=== PATIENT | male | born 1950 | race Caucasian/White ===

== ENCOUNTER 2019-03-30 21:41 | Emergency (ER) | payer MEDICARE ==
[~2019-03-30] VITALS: Ht 180.3 cm; Wt 68.0 kg
[2019-03-30 22:15] LABS: ABSOLUTE LYMPHOCYTES 0.9 thou/uL (0.8-5.3); ABSOLUTE MONOCYTES 0.4 thou/uL (0.0-1.2); ABSOLUTE NEUTROPHILS 3.2 thou/uL (1.6-8.1); BASOPHILS 0.7 %; EOSINOPHILS 0.9 %; HEMATOCRIT 37.4 % (42.0-52.0); HEMOGLOBIN 12.4 gm/dL (14.0-18.0); LYMPHOCYTES 20.4 %; MCH 33.9 pg (26.0-34.0); MCHC 33.2 g/dL (28.0-37.0); MCV 102.2 fL (80.0-100.0); MONOCYTES 7.9 %; MPV 7.4 fl. (7.2-11.1); NUCLEATED RBCS 0 /100WBC; PLATELET COUNT* 148 thou/uL (150-400); POLYS 70.1 %; RBC 3.66 mil/uL (4.50-6.00); RDW-CV 16.4 % (10.5-14.5); WBC 4.5 thou/uL (4.0-11.0)
[2019-03-30 22:26] LABS: ANION GAP 9 mmol/L (7-16); BUN 15 mg/dL (7-18); CALCIUM 8.1 mg/dL (8.5-10.1); CHLORIDE 103 mmol/L (98-107); CO2 24 mmol/L (21-32); CREATININE 1.3 mg/dL (0.6-1.3); GLUCOSE 191 mg/dL (70-99); POTASSIUM 3.8 mmol/L (3.5-5.1); SODIUM 136 mmol/L (136-145)
[2019-03-30 22:28] LABS: INR 1.1; PROTIME 10.9 Seconds (9.20-11.50)
[2019-03-30 22:31] LABS: URINE BILIRUBIN NEGATIVE (Negative); URINE BLOOD NEGATIVE (Negative); URINE CLARITY CLEAR; URINE COLOR YELLOW; URINE GLUCOSE-RANDOM NEGATIVE (Negative); URINE KETONES NEGATIVE (Negative); URINE LEUKOCYTES-REFLEX NEGATIVE (Negative); URINE NITRITE-REFLEX NEGATIVE (Negative); URINE PROTEIN NEGATIVE (Negative); URINE UROBILINOGEN 0.2 E.U./dl (0.2-1.0)
[2019-03-30 22:37] LABS: ALBUMIN 3.2 g/dL (3.4-5.0); ALKALINE PHOSPHATASE 101 U/L (46-116); SGOT 19 U/L (15-37); SGPT 21 U/L (30-65); TOTAL BILIRUBIN 0.6 mg/dL (<0.1-1.0); TOTAL PROTEIN 6.9 g/dL (6.4-8.2); TROPONIN-I LEVEL <0.06 ng/mL (<0.06)
[2019-03-30 22:38] LABS: NT-PRO BRAIN NAT PEPTIDE 309 pg/mL (<300)
[2019-03-31] MEDS ORDERED: PRINIVIL10 MG PO (00:27)
[2019-03-31 00:46] VITALS: BP 169/99
--- NOTE | 2019-04-01 13:33 | EKG ---
[place] [address] ELECTROCARDIOGRAM REPORT Name: AMANDA MARTINEZ 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 : 1950 Requested By: Paola Jensen Order Number: [id number] MD: Ben Shaikh Measurements Intervals [place] Rate: 82 P: 40 IA: 152 QRS: 55 QRSD: 100 T: 80 QT: 392 QTc: 458 Interpretive Statements Sinus rhythm Probable left ventricular hypertrophy Nonspecific T abnormalities, lateral leads No previous ECG available for comparison Electronically Signed On 04-01-2019 13:33:42 CDT by Ben Shaikh [email or web address] <ELECTRONICALLY SIGNED> By: Ben Shaikh MD, [facility] 04/01/19 1333 2201 01 Ben Shaikh MD, FACC /EPI
== END 2019-03-31 00:47 | disposition home or self-care (01) ==
LOC: M.ERS 21:41
PROVIDERS: Emergency Medicine
DX: G62.9 Polyneuropathy, unspecified (principal); Z87.891 Personal history of nicotine dependence